=== PATIENT | female | born 1960 | race Caucasian/White ===

== ENCOUNTER 2017-01-11 15:50 | Emergency (ER) | payer BC ==
[~2017-01-11] VITALS: Ht 154.9 cm; Wt 90.7 kg
--- NOTE | 2017-01-11 16:17 | PHYS DOC ---
Past Medical History Past Medical History: No Pertinent History Past Surgical History: Alcohol Use: None Drug Use: None Adult General Chief Complaint Chief Complaint: KNEE INJURY HPI HPI Patient is a 56 year old female who presents with mild left anterior knee pain that began 2 days ago. Patient denies any known injury. She states the pain is throbbing worse on weight-bearing and flexion. Review of Systems Review of Systems Constitutional: Denies fever or chills [] Musculoskeletal: mild left anterior knee pain Integument: Denies rash or skin lesions [] Neurologic: Denies headache, focal weakness or sensory changes [] Allergies Allergies Allergies Coded Allergies Type Severity Reaction Last Updated Verified No Known Drug Allergies 09/20/14 No Physical Exam Physical Exam Constitutional: Well developed, well nourished, no acute distress, non-toxic appearance. [] Skin: Warm, dry, no erythema, no rash. [] Back: No tenderness, no CVA tenderness. [] Extremities: Left knee with no obvious edema and obvious ecchymosis, no bruising. Tenderness diffusely in the anterior aspect of the left knee. Full range of motion to the left knee, negative Ewelina sign and negative Jerrell's sign negative anterior-posterior drawer sign to the left knee. +2 left pedal pulse. Cap refill less than 2 seconds the left lower extremity. Neurologic: Alert and oriented X 3, normal motor function, normal sensory function, no focal deficits noted. [] Psychologic: Affect normal, judgement normal, mood normal. [] Current Patient Data Vital Signs Vital Signs Date Time Temp Pulse Resp B/P (MAP) Pulse Ox O2 Delivery O2 Flow Rate FiO2 01/11/17 16:30 98.1 69 20 97 Room Air 98.1 EKG EKG [] Radiology/Procedures Radiology/Procedures [] Course & Med Decision Making Course & Med Decision Making Pertinent Labs and Imaging studies reviewed. (See chart for details) Patient is in the ED with left knee pain normal injury. Left knee x-rays interpreted by Dr. Porras were noted for arthritis otherwise no acute findings. Patient was discharged with instructions to follow up with an orthopedic doctor we provided in the next 1-2 weeks. Discharged with diclofenac and Medrol dose pack. Ice elevation encouraged. Dragon Disclaimer Dragon Disclaimer This electronic medical record was generated, in whole or in part, using a voice recognition dictation system. Departure Departure Impression: Primary Impression: Left knee DJD Disposition: HOME, SELF-CARE Condition: STABLE Referrals: NO PCP (PCP) REAL MOONEY II, MD follow up in one week Patient Instructions: Arthritis, Degenerative-Brief Additional Instructions: You were seen for left knee pain. Your x-rays of the left knee were noted for arthritis otherwise no acute findings. Follow-up with the provided orthopedic doctor in one week. Take the prescribed medicines as ordered. Scripts Diclofenac Sodium (DICLOFENAC SODIUM) 50 Mg Tablet.dr 1 TAB PO BID, #20 TAB 0 Refills Prov: JOSEFA GUILLERMO APRN 01/11/17 Methylprednisolone (MEDROL) 4 Mg Tab.ds.pk 1 PKG PO UD, #1 PKG Prov: JOSEFA GUILLERMO ICE CREAM DISPENSER 01/11/17 Problem Qualifiers Primary Impression: Left knee DJD Osteoarthritis type: unspecified Qualified Codes: M17.12 - Unilateral primary osteoarthritis, left knee JOSEFA GUILLERMO ICE CREAM DISPENSER Jan 11, 2017 16:17
[2017-01-11 16:30] VITALS: BP 171/81
[2017-01-11] MEDS ORDERED: DICL50TA4 PO (17:20)
[2017-01-11] MEDS ORDERED: METH4TAB2 PO (17:20)
--- NOTE | 2017-01-12 08:13 | RAD ---
Left knee with patella, 4 views, 01/11/2017: History: Knee pain, overuse There is mild spurring at the knee joint and at the patellofemoral articulation. No fracture or dislocation is identified. Slight soft tissue fullness in the suprapatellar bursa region raises the possibility of a joint effusion. Arterial calcifications are noted. IMPRESSION: 1. Mild marginal spurring. 2. No acute bony abnormality is detected.
== END 2017-01-11 17:44 | disposition home or self-care (01) ==
LOC: ER 15:50
DX: M17.12 Unilateral primary osteoarthritis, left knee (principal)
CPT/HCPCS: 73564; 99284

== ENCOUNTER 2019-06-23 00:18 | Observation (INO) | payer BC ==
[~2019-06-23] VITALS: Ht 154.9 cm; Wt 100.7 kg
[~2019-06-23 00:18] MED LIST: DICL50TA4 PO; METH4TAB2 PO
[2019-06-23 00:52] LABS: BASO # 0.1 x10^3/uL (0.0-0.2); BASO % 0 % (0-3); EOS % 0 % (0-3); HEMATOCRIT 41.7 % (36.0-47.0); HEMOGLOBIN 13.8 g/dL (12.0-15.5); LYMPH # 1.1 x10^3/uL (1.0-4.8); LYMPH % 5 % (24-48); MEAN CORPUSCULAR HEMOGLOBIN 28 pg (25-35); MEAN CORPUSCULAR HGB CONC 33 g/dL (31-37); MEAN CORPUSCULAR VOLUME 86 fL (79-100); MONO # 0.6 x10^3/uL (0.0-1.1); MONO % 3 % (0-9); NEUT # 19.1 x10^3/uL (1.8-7.7); NEUT % 91 % (31-73); PLATELET COUNT 310 x10^3/uL (140-400); RED BLOOD COUNT 4.88 x10^6/uL (3.50-5.40); RED CELL DISTRIBUTION WIDTH 14.3 % (11.5-14.5); WHITE BLOOD COUNT 20.9 x10^3/uL (4.0-11.0)
[2019-06-23] MEDS ORDERED: ASPIRIN CHEWABLE 81 MG TABLET. PO ONE (01:00)
[2019-06-23 01:01] LABS: CALCIUM 9.1 mg/dL (8.5-10.1); CREATININE 0.7 mg/dL (0.6-1.0); GFR 85.6; POTASSIUM 4.6 mmol/L (3.5-5.1)
[2019-06-23] MEDS: NITROGLYCERIN SUBLINGUAL 0.4 MG BOTTLE OF 25. SL PRN ×2 (01:05→01:08)
[2019-06-23 01:09] LABS: ALBUMIN 3.7 g/dL (3.4-5.0); ALBUMIN/GLOBULIN RATIO 1.1 (1.0-1.7); MAGNESIUM 1.7 mg/dL (1.8-2.4); TOTAL BILIRUBIN 0.4 mg/dL (0.2-1.0); TOTAL PROTEIN 7.1 g/dL (6.4-8.2)
[2019-06-23 01:11] LABS: % BANDS 3 % (0-9); % LYMPHS 8 % (24-48); % MONOS 5 % (0-10); % SEGS 84 % (35-66); PLT ESTIMATE ADEQUATE (ADEQUATE); TOXIC GRANULATION SLIGHT
--- NOTE | 2019-06-23 01:12 | PHYS DOC ---
Past Medical History Past Medical History: No Pertinent History, Arthritis Past Surgical History: Other Additional Past Surgical Histo: C section x 4 Additional Information: 1.5 PACK/DAY Alcohol Use: Rarely Drug Use: None Adult General Chief Complaint Chief Complaint: CHEST PAIN HPI HPI 58-year-old female presents to the emergency department with complaints of left- sided chest pain, cough. Patient states she's had increasing cough and cold for the last week. She describes phlegm production green in nature. She denies any hemoptysis. She has had some chills, denies any fever. She denies any underlying history of lung disease however does smoke cigarettes. Nothing makes her symptoms worse or better. Patient denies nausea, vomiting, abdominal pain. Review of Systems Review of Systems Constitutional: Denies fever or chills [] HENT: nasal congestion Respiratory: + cough/SOB Cardiovascular: No additional information not addressed in HPI [] GI: Denies abdominal pain, nausea, vomiting, bloody stools or diarrhea [] Musculoskeletal: left side pain Integument: Denies rash or skin lesions [] Neurologic: Denies headache, focal weakness or sensory changes [] All other systems were reviewed and found to be within normal limits, except as documented in this note. Current Medications Current Medications Current Medications Medications (Trade) Dose Ordered Sig/Claudia Start Time Stop Time Status Last Admin Dose Admin Acetaminophen (Tylenol) 650 mg PRN Q4HRS PRN 06/23/19 02:30 06/24/19 02:29 Albuterol/ Ipratropium (Duoneb) 3 ml RTQID 06/23/19 08:00 06/24/19 07:59 Aspirin (Children'S Aspirin) 324 mg 1X ONCE 06/23/19 01:00 06/23/19 01:01 DC 06/23/19 01:05 324 MG Ketorolac Tromethamine (Toradol 30mg Vial) 30 mg 1X ONCE 06/23/19 03:00 06/23/19 03:01 06/23/19 02:35 30 MG Levofloxacin/ Dextrose 150 ml @ 100 mls/hr 1X ONCE 06/23/19 02:00 06/23/19 03:29 06/23/19 02:35 100 MLS/HR Magnesium Sulfate 50 ml @ 25 mls/hr 1X ONCE 06/23/19 02:00 1/30/20 03:59 Nitroglycerin (Nitrostat) 0.4 mg PRN Q5MIN PRN 06/23/19 00:45 06/24/19 00:44 Ondansetron HCl (Zofran) 4 mg PRN Q8HRS PRN 06/23/19 02:30 06/24/19 02:29 Prednisone (Prednisone) 60 mg 1X ONCE 06/23/19 01:30 06/23/19 01:31 DC 06/23/19 01:39 60 MG Allergies Allergies Allergies Coded Allergies Type Severity Reaction Last Updated Verified No Known Drug Allergies 09/20/14 No Physical Exam Physical Exam Constitutional: Well developed, well nourished, no acute distress, non-toxic appearance. [] HENT: Normocephalic, atraumatic, bilateral external ears normal, oropharynx moist, no oral exudates, nose normal. [] Eyes: PERRLA, EOMI, conjunctiva normal, no discharge. [] Cardiovascular:Heart rate regular rhythm, no murmur [] Lungs & Thorax: decreased BS, wheeze, coarse BS left > right Abdomen: Bowel sounds normal, soft, no tenderness, no masses, no pulsatile masses. [] Skin: Warm, dry, no erythema, no rash. [] Back: No tenderness, no CVA tenderness. [] Extremities: No tenderness, no edema. [] Neurologic: Alert and oriented X 3, no focal deficits noted. [] Psychologic: Affect normal, judgement normal, mood normal. [] Current Patient Data Vital Signs Vital Signs Date Time Temp Pulse Resp B/P (MAP) Pulse Ox O2 Delivery O2 Flow Rate FiO2 06/23/19 01:18 97 Room Air 06/23/19 00:37 96 24 134/78 (96) 06/23/19 00:20 99.4 99.4 Lab Values Laboratory Tests Test 06/23/19 00:30 White Blood Count 20.9 x10^3/uL (4.0-11.0) H Red Blood Count 4.88 x10^6/uL (3.50-5.40) Hemoglobin 13.8 g/dL (12.0-15.5) Hematocrit 41.7 % (36.0-47.0) Mean Corpuscular Volume 86 fL (79-100) Mean Corpuscular Hemoglobin 28 pg (25-35) Mean Corpuscular Hemoglobin Concent 33 g/dL (31-37) Red Cell Distribution Width 14.3 % (11.5-14.5) Platelet Count 310 x10^3/uL (140-400) Neutrophils (%) (Auto) 91 % (31-73) H Lymphocytes (%) (Auto) 5 % (24-48) L Monocytes (%) (Auto) 3 % (0-9) Eosinophils (%) (Auto) 0 % (0-3) Basophils (%) (Auto) 0 % (0-3) Neutrophils # (Auto) 19.1 x10^3/uL (1.8-7.7) H Lymphocytes # (Auto) 1.1 x10^3/uL (1.0-4.8) Monocytes # (Auto) 0.6 x10^3/uL (0.0-1.1) Eosinophils # (Auto) 0.0 x10^3/uL (0.0-0.7) Basophils # (Auto) 0.1 x10^3/uL (0.0-0.2) Segmented Neutrophils % 84 % (35-66) H Band Neutrophils % 3 % (0-9) Lymphocytes % 8 % (24-48) L Monocytes % 5 % (0-10) Toxic Granulation Slight Platelet Estimate Adequate (ADEQUATE) D-Dimer (Cristine) 0.47 ug/mlFEU (0.00-0.50) Sodium Level 141 mmol/L (136-145) Potassium Level 4.6 mmol/L (3.5-5.1) Chloride Level 102 mmol/L (98-107) Carbon Dioxide Level 29 mmol/L (21-32) Anion Gap 10 (6-14) Blood Urea Nitrogen 9 mg/dL (7-20) Creatinine 0.7 mg/dL (0.6-1.0) Estimated GFR (Cockcroft-Gault) 85.6 BUN/Creatinine Ratio 13 (6-20) Glucose Level 154 mg/dL (70-99) H Lactic Acid Level 1.4 mmol/L (0.4-2.0) Calcium Level 9.1 mg/dL (8.5-10.1) Magnesium Level 1.7 mg/dL (1.8-2.4) L Total Bilirubin 0.4 mg/dL (0.2-1.0) Aspartate Amino Transferase (AST) 19 U/L (15-37) Alanine Aminotransferase (ALT) 18 U/L (14-59) Alkaline Phosphatase 139 U/L (46-116) H Troponin I Quantitative < 0.017 ng/mL (0.000-0.055) LP-Kjm-[id number]-Type Natriuretic Peptide 83 pg/mL (0-124) Total Protein 7.1 g/dL (6.4-8.2) Albumin 3.7 g/dL (3.4-5.0) Albumin/Globulin Ratio 1.1 (1.0-1.7) Laboratory Tests 06/23/19 00:30 Laboratory Tests 06/23/19 00:30 EKG EKG [] Radiology/Procedures Radiology/Procedures [] Course & Med Decision Making Course & Med Decision Making Pertinent Labs and Imaging studies reviewed. (See chart for details) []58-year-old female presents to the emergency department with complaints of left-sided chest pain, cough. Patient states she's had increasing cough and cold for the last week. She describes phlegm production green in nature. She denies any hemoptysis. She has had some chills, denies any fever. She denies any underlying history of lung disease however does smoke cigarettes. Nothing makes her symptoms worse or better. Patient denies nausea, vomiting, abdominal pain. Labs reviewed Evidence of leukocytosis 20.9, CXR with atypical pna, hypomag Ddimer negative, Trop negative Patient provided with duoneb, toradol Recommend admit, abx, cultures Discussed findings with patient, will admit for further observation Magnesium replaced Dragon Disclaimer Dragon Disclaimer This electronic medical record was generated, in whole or in part, using a voice recognition dictation system. Departure Departure Impression: Primary Impression: Atypical pneumonia Additional Impression: Hypomagnesemia Disposition: ADMITTED INPATIENT Admitting Physician: HIMS Condition: STABLE Referrals: NO PCP (PCP) Problem Qualifiers CHELSEY ARMIJO MD Jun 23, 2019 01:12
--- NOTE | 2019-06-23 01:29 | RAD ---
EXAM: AP View of the chest DATE: 06/23/2019 12:43 AM INDICATION: Chest pain COMPARISON: No Prior FINDINGS: The heart is not enlarged. Aortic calcifications are seen. Mediastinal and hilar contours are normal. Mild bilateral interstitial prominence. No pleural effusion or pneumothorax. IMPRESSION: 1. Bilateral interstitial prominence nonspecific, possibly atypical infectious or inflammatory process. 2. No lobar consolidation. Electronically signed by: Kai Cordova MD (06/23/2019 1:27 AM) [facility]
[2019-06-23] MEDS ORDERED: IPRATRPIUM/ALBUTEROL 0.5/2.5MG 3 ML NEBU. NEB ONE (01:30)
[2019-06-23] MEDS ORDERED: predniSONE 20 MG TABLET PO ONE (01:30)
[2019-06-23] MEDS ORDERED: MAGNESIUM SULFATE 2GM 50 ML IV ONE (02:00)
[2019-06-23] MEDS ORDERED: ONDANSETRON PF 4 MG/2 ML VIAL. IV PRN (02:30)
[2019-06-23] MEDS ORDERED: ACETAMINOPHEN 325 MG TABLET. PO PRN (02:30)
[2019-06-23] MEDS ORDERED: KETOROLAC 30 MG/ML VIAL. IVP ONE (03:00)
[2019-06-23 04:26] LABS: CLARITY,URINE CLEAR; COLOR,URINE YELLOW
[2019-06-23 04:27] LABS: BILIRUBIN,URINE NEGATIVE (NEG); NITRITE,URINE NEGATIVE (NEG); PH,URINE 8.5; PROTEIN,URINE 30 mg/dL (NEG-TRACE); SQUAMOUS EPITHELIAL CELL,UR MOD /LPF
[2019-06-23 04:28] LABS: BACTERIA,URINE FEW /HPF (0-FEW); RBC,URINE OCC /HPF (0-2); WBC,URINE OCC /HPF (0-4)
--- NOTE | 2019-06-23 06:53 | EKG ---
[facility] [address] [place] [address] Test Date: 2019-06-23 Test Time: 00:31:20 Pat Name: MAYO MICHAEL Department: Room: Gender: F Cardiology Physician: : [id number] Requested By: CHELSEY ARMIJO Order Number: [id number] Reading MD: Measurements Intervals [place] Rate: 96 P: 42 KS: 138 QRS: -5 QRSD: 80 T: 43 QT: 328 QTc: 415 Interpretive Statements SINUS RHYTHM LEFTWARD AXIS OTHERWISE NORMAL ECG RI6.01 No previous ECG available for comparison
[2019-06-23 07:15] VITALS: BP 134/59
[2019-06-23] MEDS ORDERED: IPRATRPIUM/ALBUTEROL 0.5/2.5MG 3 ML NEBU. NEB SCH (08:00)
[2019-06-23] MEDS ORDERED: ACETAMINOPHEN 500 MG TABLET PO PRN (09:00)
[2019-06-23] MEDS ORDERED: ONDANSETRON PF 4 MG/2 ML VIAL. IVP PRN (09:00)
[2019-06-23] MEDS ORDERED: ACETAMINOPHEN/CODEINE 300/30MG TABLET. PO PRN (09:00)
[2019-06-23] MEDS ORDERED: cloNIDine HCL 0.1 MG TABLET PO PRN (09:00)
[2019-06-23] MEDS ORDERED: CALCIUM CARBONATE 500 MG TAB.CHEW PO PRN (09:00)
[2019-06-23] MEDS ORDERED: NICOTINE 21MG PATCH. TD PRN (09:00)
[2019-06-23] MEDS ORDERED: TEMAZEPAM 7.5 MG CAPSULE PO PRN (09:00)
[2019-06-23] MEDS: DICLOFENAC SODIUM 25 MG TABLET.DR PO SCH ×2 (09:15→16:30)
[2019-06-23] MEDS: DOXYCYCLINE HYCLATE 100 MG TABLET PO SCH ×2 (09:39→20:16)
[2019-06-23] MEDS ORDERED: MAGNESIUM SULFATE 1GM 100 ML IV ONE (10:00)
--- NOTE | 2019-06-23 10:33 | PDOC2 ---
ESTHELA MOREIRA HEAD SILVERMAN 06/23/19 1033: CARDIAC CONSULT DATE OF CONSULT Date of Consult DATE: 06/23/19 TIME: 10:30 REASON FOR CONSULT Reason for Consult: chest pain REFERRING PHYSICIAN Referring Physician: Cynthia SOURCE Source: Chart review, Patient HISTORY OF PRESENT ILLNESS HISTORY OF PRESENT ILLNESS This is a 58 yo female who presented secondary to chest pain and persistent cough. Patient reports cold, congestion, cough for the last week. Cough productive of green/yellow sputum. Last night, began having sharp pain in her left side/chest and also in her back. Much worse with deep breathing and cough. Hurts to take a deep breath. No dizziness, diaphoresis, palpitations, or nausea/vomiting. No known medical history aside from arthritis, but hester not routinely go to the doctor. Pain is improved with Toradol. PAST MEDICAL HISTORY Cardiovascular: No pertinent hx Musculoskeletal: Osteoarthritis PAST SURGICAL HISTORY Past Surgical History: Other ( x4) FAMILY HISTORY Family History: Cancer (lung ), Heart Disease (mother ) SOCIAL HISTORY Smoke: 1 pack per day (1.5 ppd) ALCOHOL: none Drugs: None Lives: with Family CURRENT MEDICATIONS CURRENT MEDICATIONS Current Medications Medications (Trade) Dose Ordered Sig/Claudia Route PRN Reason Start Time Stop Time Status Last Admin Dose Admin Aspirin (Children'S Aspirin) 324 mg 1X ONCE PO 06/23/19 01:00 06/23/19 01:01 DC 06/23/19 01:05 Albuterol/ Ipratropium (Duoneb) 3 ml 1X ONCE NEB 06/23/19 01:30 06/23/19 01:31 DC 06/23/19 01:17 Prednisone (Prednisone) 60 mg 1X ONCE PO 06/23/19 01:30 06/23/19 01:31 DC 06/23/19 01:39 Levofloxacin/ Dextrose 150 ml @ 100 mls/hr 1X ONCE IV 06/23/19 02:00 06/23/19 03:29 DC 06/23/19 02:35 Magnesium Sulfate 50 ml @ 25 mls/hr 1X ONCE IV 06/23/19 02:00 06/23/19 03:59 DC 06/23/19 02:58 Ketorolac Tromethamine (Toradol 30mg Vial) 30 mg 1X ONCE IVP 06/23/19 03:00 06/23/19 03:01 DC 06/23/19 02:35 Albuterol/ Ipratropium (Duoneb) 3 ml RTQID NEB 06/23/19 08:00 06/23/19 09:00 DC 06/23/19 07:59 Doxycycline Hyclate (Vibra-Tab) 100 mg BID PO 06/23/19 09:00 06/23/19 09:39 Diclofenac Sodium (Voltaren) 50 mg BIDWMEALS PO 06/23/19 09:15 06/23/19 09:15 Magnesium Sulfate/ Dextrose 100 ml @ 100 mls/hr 1X ONCE IV 06/23/19 10:00 06/23/19 10:59 06/23/19 09:38 ALLERGIES ALLERGIES: Coded Allergies: No Known Drug Allergies (Unverified , 09/20/14) ROS Review of System 14 point ROS conducted with pertinent positives noted above in hPI PHYSICAL EXAM General: Alert, Oriented X3, Cooperative, No acute distress HEENT: Atraumatic, Other (coarse bases) Lungs: Normal air movement, Other (left chest tenderness upon palpitation) Heart: Regular rate, Normal S1, Normal S2, Other (distant heart tones ) Abdomen: Soft, Other (obese ) Skin: No significant lesion Neuro: Normal speech, Sensation intact Psych/Mental Status: Mental status NL, Mood NL MUSCULOSKELETAL: Osteoarthritic changes both hands VITALS/I&O VITALS/I&O: Vital Signs Date Time Temp Pulse Resp B/P (MAP) Pulse Ox O2 Delivery O2 Flow Rate FiO2 06/23/19 08:01 93 Nasal Cannula 2.0 06/23/19 07:15 98.0 94 20 134/59 (84) 98.0 I & O 06/22/19 06/22/19 06/23/19 15:00 23:00 07:00 Intake Total 200 ml Balance 200 ml LABS Lab: Laboratory Tests Test 06/23/19 00:30 06/23/19 04:10 06/23/19 05:53 06/23/19 09:05 White Blood Count 20.9 x10^3/uL (4.0-11.0) H Red Blood Count 4.88 x10^6/uL (3.50-5.40) Hemoglobin 13.8 g/dL (12.0-15.5) Hematocrit 41.7 % (36.0-47.0) Mean Corpuscular Volume 86 fL (79-100) Mean Corpuscular Hemoglobin 28 pg (25-35) Mean Corpuscular Hemoglobin Concent 33 g/dL (31-37) Red Cell Distribution Width 14.3 % (11.5-14.5) Platelet Count 310 x10^3/uL (140-400) Neutrophils (%) (Auto) 91 % (31-73) H Lymphocytes (%) (Auto) 5 % (24-48) L Monocytes (%) (Auto) 3 % (0-9) Eosinophils (%) (Auto) 0 % (0-3) Basophils (%) (Auto) 0 % (0-3) Neutrophils # (Auto) 19.1 x10^3/uL (1.8-7.7) H Lymphocytes # (Auto) 1.1 x10^3/uL (1.0-4.8) Monocytes # (Auto) 0.6 x10^3/uL (0.0-1.1) Eosinophils # (Auto) 0.0 x10^3/uL (0.0-0.7) Basophils # (Auto) 0.1 x10^3/uL (0.0-0.2) Segmented Neutrophils % 84 % (35-66) H Band Neutrophils % 3 % (0-9) Lymphocytes % 8 % (24-48) L Monocytes % 5 % (0-10) Toxic Granulation Slight Platelet Estimate Adequate (ADEQUATE) D-Dimer (Cristine) 0.47 ug/mlFEU (0.00-0.50) Sodium Level 141 mmol/L (136-145) Potassium Level 4.6 mmol/L (3.5-5.1) Chloride Level 102 mmol/L (98-107) Carbon Dioxide Level 29 mmol/L (21-32) Anion Gap 10 (6-14) Blood Urea Nitrogen 9 mg/dL (7-20) Creatinine 0.7 mg/dL (0.6-1.0) Estimated GFR (Cockcroft-Gault) 85.6 BUN/Creatinine Ratio 13 (6-20) Glucose Level 154 mg/dL (70-99) H Lactic Acid Level 1.4 mmol/L (0.4-2.0) Calcium Level 9.1 mg/dL (8.5-10.1) Magnesium Level 1.7 mg/dL (1.8-2.4) L Total Bilirubin 0.4 mg/dL (0.2-1.0) Aspartate Amino Transferase (AST) 19 U/L (15-37) Alanine Aminotransferase (ALT) 18 U/L (14-59) Alkaline Phosphatase 139 U/L (46-116) H Troponin I Quantitative < 0.017 ng/mL (0.000-0.055) < 0.017 ng/mL (0.000-0.055) < 0.017 ng/mL (0.000-0.055) OV-Uwy-Q-Type Natriuretic Peptide 83 pg/mL (0-124) Total Protein 7.1 g/dL (6.4-8.2) Albumin 3.7 g/dL (3.4-5.0) Albumin/Globulin Ratio 1.1 (1.0-1.7) Urine Collection Type Unknown Urine Color Yellow Urine Clarity Clear Urine pH 8.5 Urine Specific Louann 1.020 Urine Protein 30 mg/dL (NEG-TRACE) Urine Glucose (UA) Negative mg/dL (NEG) Urine Ketones (Stick) Negative mg/dL (NEG) Urine Blood Negative (NEG) Urine Nitrite Negative (NEG) Urine Bilirubin Negative (NEG) Urine Urobilinogen Dipstick 1.0 mg/dL (0.2 mg/dL) Urine Leukocyte Esterase Negative (NEG) Urine RBC Occ /HPF (0-2) Urine WBC Occ /HPF (0-4) Urine Squamous Epithelial Cells Mod /LPF Urine Bacteria Few /HPF (0-FEW) Urine Mucus Slight /LPF Laboratory Tests 06/23/19 00:30 Laboratory Tests 06/23/19 00:30 ASSESSMENT/PLAN ASSESSMENT/PLAN 1. Chest pain, atypical. AMI ruled out. Most probably inflammation secondary to persistent cough 2. Leukocytosis 3. Acute bronchitis 4. Hypomagnesemia; replaced 5. Tobaccoism; discussed/encouraged cessation Recommendations Lipids Given risk factors, will obtain baseline echo to asses LV systolic function If pain recurrent following resolution of cough, could consider outpatient MPI. JAKE TOLBERT MD 06/23/19 7254: CARDIAC CONSULT ASSESSMENT/PLAN ASSESSMENT/PLAN Patient seen and examined. Agree with DIGITAL SALES DIRECTOR's assessment and plan. Chest pain with atypical features and probably musculoskeletal. Myocardial infarction ruled out. 2-D echo showed normal LV function without any wall motion abnormalities Plan for ischemic evaluation as an outpatient Thank you for your consultation ESTHELA MOREIRA APRN Jun 23, 2019 10:33 JAKE TOLBERT MD Jun 23, 2019 16:21
[2019-06-23 10:58] VITALS: BP 122/63
[2019-06-23 11:09] LABS: CHOLESTEROL/HDL RATIO 5.4
[2019-06-23] MEDS: IPRATRPIUM/ALBUTEROL 0.5/2.5MG 3 ML NEBU. NEB SCH ×3 (11:27→19:32)
--- NOTE | 2019-06-23 12:03 | PDOC1 ---
History and Physical Date of Admission Date of Admission DATE: 06/23/19 TIME: 11:54 Identification/Chief Complaint Chief Complaint soa, wheezy, x 1 week Source Source: Caregiver, Chart review, Patient History of Present Illness History of Present Illness 58 yo white female, no home meds at home no PCP, 1 week SOA and wheezy, SMOKES 1,.5 packs lasts her 2 days, LIKELY undiagnosed COPD, CXR bilateral haziness seen in atypical infection, DID NOT fail abx, DID NOT seek any medical attention PROPERTY MAN, WBC 20 (no prev steroids), no fevers. Sitting up right with minimal air exchange, diminshed on bases, SHe also complained of left chest pain radiated to back, then she mentions starting from the neck moved to the left arm so cards was consulted, NO personal hx CAD, but then has not been to doctors and has risk factors Seen in med tele floor. EKG reviewed. MAg slightly low 1.7 Past Medical History Cardiovascular: No pertinent hx Musculoskeletal: Osteoarthritis Past Surgical History Past Surgical History: Other ( x4), No pertinent history Family History Family History: Cancer (lung ), Heart Disease (mother ) Social History Smoke: 1 pack per day (1.5 ppd) ALCOHOL: none Drugs: None Current Problem List Problem List Problems Medical Problems: (1) Hypomagnesemia Status: Acute Current Medications Current Medications Current Medications Aspirin (Children'S Aspirin) 324 mg 1X ONCE PO Last administered on 06/23/19at 01:05; Start 06/23/19 at 01:00; Stop 06/23/19 at 01:01; Status DC Nitroglycerin (Nitrostat) 0.4 mg PRN Q5MIN PRN SL CP RATING > 1/10; Start 06/23/19 at 00:45; Stop 06/24/19 at 00:44 Albuterol/ Ipratropium (Duoneb) 3 ml 1X ONCE NEB Last administered on 06/23/19 at 01:17; Start 06/23/19 at 01:30; Stop 06/23/19 at 01:31; Status DC Prednisone (Prednisone) 60 mg 1X ONCE PO Last administered on 06/23/19at 01:39; Start 06/23/19 at 01:30; Stop 06/23/19 at 01:31; Status DC Levofloxacin/ Dextrose 150 ml @ 100 mls/hr 1X ONCE IV Last administered on 06/23/19at 02:35; Start 06/23/19 at 02:00; Stop 06/23/19 at 03:29; Status DC Magnesium Sulfate 50 ml @ 25 mls/hr 1X ONCE IV Last administered on 06/23/19at 02:58; Start 06/23/19 at 02:00; Stop 06/23/19 at 03:59; Status DC Ketorolac Tromethamine (Toradol 30mg Vial) 30 mg 1X ONCE IVP Last administered on 06/23/19at 02:35; Start 06/23/19 at 03:00; Stop 06/23/19 at 03:01; Status DC Ondansetron HCl (Zofran) 4 mg PRN Q8HRS PRN IV NAUSEA/VOMITING 1ST CHOICE; Start 06/23/19 at 02:30; Stop 06/23/19 at 09:01; Status DC Acetaminophen (Tylenol) 650 mg PRN Q4HRS PRN PO FEVER; Start 06/23/19 at 02:30; Stop 06/23/19 at 09:00; Status DC Albuterol/ Ipratropium (Duoneb) 3 ml RTQID NEB Last administered on 06/23/19at 07:59; Start 06/23/19 at 08:00; Stop 06/23/19 at 09:00; Status DC Methylprednisolone Sodium Succinate (SOLU-Medrol 40MG VIAL) 40 mg Q8HRS IV ; St art 06/23/19 at 14:00 Albuterol/ Ipratropium (Duoneb) 3 ml RTQID NEB Last administered on 06/23/19at 11:27; Start 06/23/19 at 12:00 Acetaminophen (Tylenol) 500 mg PRN Q6HRS PRN PO MILD PAIN / TEMP; Start 06/23/19 at 09:00 Acetaminophen/ Codeine Phosphate (Tylenol #3) 1 tab PRN Q6HRS PRN PO PAIN; Start 06/23/19 at 09:00 Ondansetron HCl (Zofran) 4 mg PRN Q6HRS PRN IVP NAUSEA/VOMITING; Start 06/23/19 at 09:00 Temazepam (Restoril) 7.5 mg PRN QHS PRN PO INSOMNIA; Start 06/23/19 at 09:00 Clonidine HCl (Catapres) 0.1 mg PRN Q1HR PRN PO HYPERTENSION; Start 06/23/19 at 09:00 Calcium Carbonate/ Glycine (Tums) 500 mg PRN AFTMEALHC PRN PO INDIGESTION; Start 06/23/19 at 09:00 Doxycycline Hyclate (Vibra-Tab) 100 mg BID PO Last administered on 06/23/19at 09:39; Start 06/23/19 at 09:00 Diclofenac Sodium (Voltaren) 50 mg BIDWMEALS PO Last administered on 06/23/19at 09:15; Start 06/23/19 at 09:15 Magnesium Sulfate/ Dextrose 100 ml @ 100 mls/hr 1X ONCE IV Last administered on 06/23/19at 09:38; Start 06/23/19 at 10:00; Stop 06/23/19 at 10:59; Status DC Nicotine (Nicoderm Cq 21mg) 1 patch PRN DAILY PRN TD SMOKING CESSATION; Start 06/23/19 at 09:00 Aspirin (Ecotrin) 81 mg DAILYWBKFT PO ; Start 06/24/19 at 08:00 Active Scripts Active Diclofenac Sodium 50 Mg Tablet.dr 1 Tab PO BID Medrol (Methylprednisolone) 4 Mg Tab.ds.pk 1 Pkg PO UD Allergies Allergies: Coded Allergies: No Known Drug Allergies (Unverified , 09/20/14) ROS Review of System as per HPI< all else 14 pt neg Physical Exam General: mild distress HEENT: Atraumatic, PERRLA Lungs: Normal air movement, Other (dminished air exchange, no crackles, minimal audible wheezing bec of poor effort) Heart: S1S2, RRR, no thrills, no rubs Cardiovascular: S1, S2 Breasts: Normal Abdomen: Normal bowel sounds, Soft, No tenderness, No hepatosplenomegaly, No masses Rectal Exam: not examined PELVIC: Nml ext genitalia Extremities: No clubbing, No cyanosis, No edema, Normal pulses, No tenderness/swelling Skin: No rashes, No breakdown, No significant lesion Neuro: Normal gait, Normal speech, Strength at 5/5 X4 ext, Normal tone, Sensation intact, Cranial nerves 3-12 NL, Reflexes 2+ Psych/Mental Status: Mental status NL, Mood NL Vitals Vitals Vital Signs Date Time Temp Pulse Resp B/P (MAP) Pulse Ox O2 Delivery O2 Flow Rate FiO2 06/23/19 11:28 96 Nasal Cannula 2.0 06/23/19 10:58 98.0 95 20 122/63 (82) 98.0 Labs Labs Laboratory Tests Test 06/23/19 00:30 06/23/19 04:10 06/23/19 05:53 06/23/19 09:05 White Blood Count 20.9 x10^3/uL (4.0-11.0) Red Blood Count 4.88 x10^6/uL (3.50-5.40) Hemoglobin 13.8 g/dL (12.0-15.5) Hematocrit 41.7 % (36.0-47.0) Mean Corpuscular Volume 86 fL (79-100) Mean Corpuscular Hemoglobin 28 pg (25-35) Mean Corpuscular Hemoglobin Concent 33 g/dL (31-37) Red Cell Distribution Width 14.3 % (11.5-14.5) Platelet Count 310 x10^3/uL (140-400) Neutrophils (%) (Auto) 91 % (31-73) Lymphocytes (%) (Auto) 5 % (24-48) Monocytes (%) (Auto) 3 % (0-9) Eosinophils (%) (Auto) 0 % (0-3) Basophils (%) (Auto) 0 % (0-3) Neutrophils # (Auto) 19.1 x10^3/uL (1.8-7.7) Lymphocytes # (Auto) 1.1 x10^3/uL (1.0-4.8) Monocytes # (Auto) 0.6 x10^3/uL (0.0-1.1) Eosinophils # (Auto) 0.0 x10^3/uL (0.0-0.7) Basophils # (Auto) 0.1 x10^3/uL (0.0-0.2) Segmented Neutrophils % 84 % (35-66) Band Neutrophils % 3 % (0-9) Lymphocytes % 8 % (24-48) Monocytes % 5 % (0-10) Toxic Granulation Slight Platelet Estimate Adequate (ADEQUATE) D-Dimer (Cristine) 0.47 ug/mlFEU (0.00-0.50) Sodium Level 141 mmol/L (136-145) Potassium Level 4.6 mmol/L (3.5-5.1) Chloride Level 102 mmol/L (98-107) Carbon Dioxide Level 29 mmol/L (21-32) Anion Gap 10 (6-14) Blood Urea Nitrogen 9 mg/dL (7-20) Creatinine 0.7 mg/dL (0.6-1.0) Estimated GFR (Cockcroft-Gault) 85.6 BUN/Creatinine Ratio 13 (6-20) Glucose Level 154 mg/dL (70-99) Lactic Acid Level 1.4 mmol/L (0.4-2.0) Calcium Level 9.1 mg/dL (8.5-10.1) Magnesium Level 1.7 mg/dL (1.8-2.4) Total Bilirubin 0.4 mg/dL (0.2-1.0) Aspartate Amino Transf (AST/SGOT) 19 U/L (15-37) Alanine Aminotransferase (ALT/SGPT) 18 U/L (14-59) Alkaline Phosphatase 139 U/L (46-116) Troponin I Quantitative < 0.017 ng/mL (0.000-0.055) < 0.017 ng/mL (0.000-0.055) < 0.017 ng/mL (0.000-0.055) GB-Zro-O-Type Natriuretic Peptide 83 pg/mL (0-124) Total Protein 7.1 g/dL (6.4-8.2) Albumin 3.7 g/dL (3.4-5.0) Albumin/Globulin Ratio 1.1 (1.0-1.7) Urine Collection Type Unknown Urine Color Yellow Urine Clarity Clear Urine pH 8.5 Urine Specific [place] 1.020 Urine Protein 30 mg/dL (NEG-TRACE) Urine Glucose (UA) Negative mg/dL (NEG) Urine Ketones (Stick) Negative mg/dL (NEG) Urine Blood Negative (NEG) Urine Nitrite Negative (NEG) Urine Bilirubin Negative (NEG) Urine Urobilinogen Dipstick 1.0 mg/dL (0.2 mg/dL) Urine Leukocyte Esterase Negative (NEG) Urine RBC Occ /HPF (0-2) Urine WBC Occ /HPF (0-4) Urine Squamous Epithelial Cells Mod /LPF Urine Bacteria Few /HPF (0-FEW) Urine Mucus Slight /LPF Triglycerides Level 53 mg/dL (0-150) Cholesterol Level 227 mg/dL (0-200) LDL Cholesterol, Calculated 174 mg/dL (0-100) VLDL Cholesterol, Calculated 11 mg/dL (0-40) Non-HDL Cholesterol Calculated 185 mg/dL (0-129) HDL Cholesterol 42 mg/dL (40-60) Cholesterol/HDL Ratio 5.4 Laboratory Tests Test 06/23/19 00:30 06/23/19 04:10 06/23/19 05:53 06/23/19 09:05 White Blood Count 20.9 x10^3/uL (4.0-11.0) Red Blood Count 4.88 x10^6/uL (3.50-5.40) Hemoglobin 13.8 g/dL (12.0-15.5) Hematocrit 41.7 % (36.0-47.0) Mean Corpuscular Volume 86 fL (79-100) Mean Corpuscular Hemoglobin 28 pg (25-35) Mean Corpuscular Hemoglobin Concent 33 g/dL (31-37) Red Cell Distribution Width 14.3 % (11.5-14.5) Platelet Count 310 x10^3/uL (140-400) Neutrophils (%) (Auto) 91 % (31-73) Lymphocytes (%) (Auto) 5 % (24-48) Monocytes (%) (Auto) 3 % (0-9) Eosinophils (%) (Auto) 0 % (0-3) Basophils (%) (Auto) 0 % (0-3) Neutrophils # (Auto) 19.1 x10^3/uL (1.8-7.7) Lymphocytes # (Auto) 1.1 x10^3/uL (1.0-4.8) Monocytes # (Auto) 0.6 x10^3/uL (0.0-1.1) Eosinophils # (Auto) 0.0 x10^3/uL (0.0-0.7) Basophils # (Auto) 0.1 x10^3/uL (0.0-0.2) Segmented Neutrophils % 84 % (35-66) Band Neutrophils % 3 % (0-9) Lymphocytes % 8 % (24-48) Monocytes % 5 % (0-10) Toxic Granulation Slight Platelet Estimate Adequate (ADEQUATE) D-Dimer (Cristine) 0.47 ug/mlFEU (0.00-0.50) Sodium Level 141 mmol/L (136-145) Potassium Level 4.6 mmol/L (3.5-5.1) Chloride Level 102 mmol/L (98-107) Carbon Dioxide Level 29 mmol/L (21-32) Anion Gap 10 (6-14) Blood Urea Nitrogen 9 mg/dL (7-20) Creatinine 0.7 mg/dL (0.6-1.0) Estimated GFR (Cockcroft-Gault) 85.6 BUN/Creatinine Ratio 13 (6-20) Glucose Level 154 mg/dL (70-99) Lactic Acid Level 1.4 mmol/L (0.4-2.0) Calcium Level 9.1 mg/dL (8.5-10.1) Magnesium Level 1.7 mg/dL (1.8-2.4) Total Bilirubin 0.4 mg/dL (0.2-1.0) Aspartate Amino Transf (AST/SGOT) 19 U/L (15-37) Alanine Aminotransferase (ALT/SGPT) 18 U/L (14-59) Alkaline Phosphatase 139 U/L (46-116) Troponin I Quantitative < 0.017 ng/mL (0.000-0.055) < 0.017 ng/mL (0.000-0.055) < 0.017 ng/mL (0.000-0.055) QP-Vtb-Z-Type Natriuretic Peptide 83 pg/mL (0-124) Total Protein 7.1 g/dL (6.4-8.2) Albumin 3.7 g/dL (3.4-5.0) Albumin/Globulin Ratio 1.1 (1.0-1.7) Urine Collection Type Unknown Urine Color Yellow Urine Clarity Clear Urine pH 8.5 Urine Specific [place] 1.020 Urine Protein 30 mg/dL (NEG-TRACE) Urine Glucose (UA) Negative mg/dL (NEG) Urine Ketones (Stick) Negative mg/dL (NEG) Urine Blood Negative (NEG) Urine Nitrite Negative (NEG) Urine Bilirubin Negative (NEG) Urine Urobilinogen Dipstick 1.0 mg/dL (0.2 mg/dL) Urine Leukocyte Esterase Negative (NEG) Urine RBC Occ /HPF (0-2) Urine WBC Occ /HPF (0-4) Urine Squamous Epithelial Cells Mod /LPF Urine Bacteria Few /HPF (0-FEW) Urine Mucus Slight /LPF Triglycerides Level 53 mg/dL (0-150) Cholesterol Level 227 mg/dL (0-200) LDL Cholesterol, Calculated 174 mg/dL (0-100) VLDL Cholesterol, Calculated 11 mg/dL (0-40) Non-HDL Cholesterol Calculated 185 mg/dL (0-129) HDL Cholesterol 42 mg/dL (40-60) Cholesterol/HDL Ratio 5.4 VTE Prophylaxis Ordered VTE Prophylaxis Devices: Yes VTE Pharmacological Prophylaxi: Yes Assessment/Plan Assessment/Plan 1. Acute respi failure, SMoker, 1.5 lasts 2 days 2. Obesity 3. LIkely undiagnosed COPD 4. Chest pain Suspect MSK in origin 5. LEukocytosis , no steroids PROPERTY MAN, likely sec to atypical lung infection - start doxy, pulmo cnsulted,plus other supportive meds 6. MIld hypomagneseami - 1.7 - replace 7. SIRSno organ dysfcn PLAN: Doxy, pulmo, nebs deyanira patch Cards and pulmo consulted may eat Ambulate Echo per cards NEeds to quit smoking and lose weight NO home meds to reconcile DES CRYSTAL MD Jun 23, 2019 12:03
--- NOTE | 2019-06-23 14:10 | NUR ---
SS following for discharge planning. SS reviewed pt chart. Pt is from home and is currently requiring oxygen. SS will continue to follow for discharge planning.
[2019-06-23] MEDS: methylPREDNISolone SOD SUCC PF 40 MG/ML VIAL. IV SCH ×2 (14:43→20:16)
[2019-06-23 15:00] VITALS: BP 119/70
--- NOTE | 2019-06-23 15:20 | CARD ---
MR#: [id number] Date of Study: 06/23/2019 Ordering Physician: ESTHELA MOREIRA, Referring Physician: ESTHELA MOREIRA, Tech: Robina Caal [facility] APPROVED REPORT EXAM: Two-dimensional and M-mode echocardiogram with Doppler and color Doppler. Other Information Quality : AverageHR: 86bpm Technically limited study due to body habitus and smoking. INDICATION Dyspnea 2D DIMENSIONS RVDd3.9 (2.9-3.5cm)Left Atrium(2D)3.6 (1.6-4.0cm) IVSd1.0 (0.7-1.1cm)Aortic Root(2D)2.4 (2.0-3.7cm) LVDd4.6 (3.9-5.9cm)LVOT Diameter1.9 (1.8-2.4cm) PWd0.9 (0.7-1.1cm)LVDs3.2 (2.5-4.0cm) FS (%) 29.6 %SV53.9 ml LVEF(%)56.7 (>50%) Aortic Valve AoV Peak Roberto.225.7cm/sAoV VTI39.0cm AO Peak GR.20.4mmHgLVOT Peak Roberto.155.6cm/s AO Mean GR.9mmHgAVA (VMAX)2.02cm2 Mitral Valve MV E Ygdzlgon10.8cm/sMV DECEL [id number] MV A Nwcclltl254.5cm/sE/A Ratio0.8 MV A [id number] Pulmonary Valve PV Peak Pgiwparr420.0cm/s Pulmonary Vein S1 Roltdvrg21.9cm/sD2 Shtnfeuj03.4cm/s PVa [id number] LEFT VENTRICLE The left ventricle is normal size. There is normal left ventricular wall thickness. The left ventricu lar systolic function is normal. The ejection fraction is 60-65%. There is normal LV segmental wall m otion. Transmitral Doppler flow pattern is Grade I-abnormal relaxation pattern. There is no ventricul ar septal defect visualized. RIGHT VENTRICLE The right ventricle is normal size. The right ventricular systolic function is normal. ATRIA The left atrium size is normal. The right atrium size is normal. The interatrial septum is intact wit h no evidence for an atrial septal defect or patent foramen ovale as noted on 2-D or Doppler imaging. AORTIC VALVE The aortic valve is normal in structure and function. Doppler and Color Flow revealed no significant aortic regurgitation. There is no significant aortic valvular stenosis. MITRAL VALVE The mitral valve is normal in structure and function. There is no mitral valve stenosis. Doppler and Color Flow revealed no mitral valve regurgitation noted. TRICUSPID VALVE The tricuspid valve is normal in structure and function. Doppler and Color Flow revealed no tricuspid valve regurgitation noted. Unable to assess PA pressure. There is no tricuspid valve stenosis. PULMONIC VALVE The pulmonic valve is not well visualized. There is no pulmonic valvular stenosis. GREAT VESSELS The aortic root is normal in size. The ascending aorta is normal in size. The IVC is normal in size a nd collapses >50% with inspiration. PERICARDIAL EFFUSION There is no pleural effusion. There is no evidence of significant pericardial effusion. Critical Notification Critical Value: No <Conclusion> The left ventricular systolic function is normal. The ejection fraction is 60-65%. There is normal LV segmental wall motion. Transmitral Doppler flow pattern is Grade I-abnormal relaxation pattern. There is no evidence of significant pericardial effusion. Signed by : Reddy Moore, Electronically Approved : 06/23/2019 15:20:03
--- NOTE | 2019-06-23 16:40 | PDOC ---
PULMONARY PROGRESS NOTES Vitals Vital Signs Date Time Temp Pulse Resp B/P (MAP) Pulse Ox O2 Delivery O2 Flow Rate FiO2 06/23/19 16:10 94 Nasal Cannula 1.0 06/23/19 15:00 97.3 81 20 119/70 (86) 97.3 Cardiovascular: S1, S2 Labs Laboratory Tests Test 06/23/19 00:30 06/23/19 04:10 06/23/19 05:53 06/23/19 09:05 White Blood Count 20.9 x10^3/uL (4.0-11.0) Red Blood Count 4.88 x10^6/uL (3.50-5.40) Hemoglobin 13.8 g/dL (12.0-15.5) Hematocrit 41.7 % (36.0-47.0) Mean Corpuscular Volume 86 fL (79-100) Mean Corpuscular Hemoglobin 28 pg (25-35) Mean Corpuscular Hemoglobin Concent 33 g/dL (31-37) Red Cell Distribution Width 14.3 % (11.5-14.5) Platelet Count 310 x10^3/uL (140-400) Neutrophils (%) (Auto) 91 % (31-73) Lymphocytes (%) (Auto) 5 % (24-48) Monocytes (%) (Auto) 3 % (0-9) Eosinophils (%) (Auto) 0 % (0-3) Basophils (%) (Auto) 0 % (0-3) Neutrophils # (Auto) 19.1 x10^3/uL (1.8-7.7) Lymphocytes # (Auto) 1.1 x10^3/uL (1.0-4.8) Monocytes # (Auto) 0.6 x10^3/uL (0.0-1.1) Eosinophils # (Auto) 0.0 x10^3/uL (0.0-0.7) Basophils # (Auto) 0.1 x10^3/uL (0.0-0.2) Segmented Neutrophils % 84 % (35-66) Band Neutrophils % 3 % (0-9) Lymphocytes % 8 % (24-48) Monocytes % 5 % (0-10) Toxic Granulation Slight Platelet Estimate Adequate (ADEQUATE) D-Dimer (Cristine) 0.47 ug/mlFEU (0.00-0.50) Sodium Level 141 mmol/L (136-145) Potassium Level 4.6 mmol/L (3.5-5.1) Chloride Level 102 mmol/L (98-107) Carbon Dioxide Level 29 mmol/L (21-32) Anion Gap 10 (6-14) Blood Urea Nitrogen 9 mg/dL (7-20) Creatinine 0.7 mg/dL (0.6-1.0) Estimated GFR (Cockcroft-Gault) 85.6 BUN/Creatinine Ratio 13 (6-20) Glucose Level 154 mg/dL (70-99) Lactic Acid Level 1.4 mmol/L (0.4-2.0) Calcium Level 9.1 mg/dL (8.5-10.1) Magnesium Level 1.7 mg/dL (1.8-2.4) Total Bilirubin 0.4 mg/dL (0.2-1.0) Aspartate Amino Transf (AST/SGOT) 19 U/L (15-37) Alanine Aminotransferase (ALT/SGPT) 18 U/L (14-59) Alkaline Phosphatase 139 U/L (46-116) Troponin I Quantitative < 0.017 ng/mL (0.000-0.055) < 0.017 ng/mL (0.000-0.055) < 0.017 ng/mL (0.000-0.055) IQ-Kun-U-Type Natriuretic Peptide 83 pg/mL (0-124) Total Protein 7.1 g/dL (6.4-8.2) Albumin 3.7 g/dL (3.4-5.0) Albumin/Globulin Ratio 1.1 (1.0-1.7) Urine Collection Type Unknown Urine Color Yellow Urine Clarity Clear Urine pH 8.5 Urine Specific [place] 1.020 Urine Protein 30 mg/dL (NEG-TRACE) Urine Glucose (UA) Negative mg/dL (NEG) Urine Ketones (Stick) Negative mg/dL (NEG) Urine Blood Negative (NEG) Urine Nitrite Negative (NEG) Urine Bilirubin Negative (NEG) Urine Urobilinogen Dipstick 1.0 mg/dL (0.2 mg/dL) Urine Leukocyte Esterase Negative (NEG) Urine RBC Occ /HPF (0-2) Urine WBC Occ /HPF (0-4) Urine Squamous Epithelial Cells Mod /LPF Urine Bacteria Few /HPF (0-FEW) Urine Mucus Slight /LPF Triglycerides Level 53 mg/dL (0-150) Cholesterol Level 227 mg/dL (0-200) LDL Cholesterol, Calculated 174 mg/dL (0-100) VLDL Cholesterol, Calculated 11 mg/dL (0-40) Non-HDL Cholesterol Calculated 185 mg/dL (0-129) HDL Cholesterol 42 mg/dL (40-60) Cholesterol/HDL Ratio 5.4 Laboratory Tests Test 06/23/19 00:30 06/23/19 04:10 06/23/19 05:53 06/23/19 09:05 White Blood Count 20.9 x10^3/uL (4.0-11.0) Red Blood Count 4.88 x10^6/uL (3.50-5.40) Hemoglobin 13.8 g/dL (12.0-15.5) Hematocrit 41.7 % (36.0-47.0) Mean Corpuscular Volume 86 fL (79-100) Mean Corpuscular Hemoglobin 28 pg (25-35) Mean Corpuscular Hemoglobin Concent 33 g/dL (31-37) Red Cell Distribution Width 14.3 % (11.5-14.5) Platelet Count 310 x10^3/uL (140-400) Neutrophils (%) (Auto) 91 % (31-73) Lymphocytes (%) (Auto) 5 % (24-48) Monocytes (%) (Auto) 3 % (0-9) Eosinophils (%) (Auto) 0 % (0-3) Basophils (%) (Auto) 0 % (0-3) Neutrophils # (Auto) 19.1 x10^3/uL (1.8-7.7) Lymphocytes # (Auto) 1.1 x10^3/uL (1.0-4.8) Monocytes # (Auto) 0.6 x10^3/uL (0.0-1.1) Eosinophils # (Auto) 0.0 x10^3/uL (0.0-0.7) Basophils # (Auto) 0.1 x10^3/uL (0.0-0.2) Segmented Neutrophils % 84 % (35-66) Band Neutrophils % 3 % (0-9) Lymphocytes % 8 % (24-48) Monocytes % 5 % (0-10) Toxic Granulation Slight Platelet Estimate Adequate (ADEQUATE) D-Dimer (Cristine) 0.47 ug/mlFEU (0.00-0.50) Sodium Level 141 mmol/L (136-145) Potassium Level 4.6 mmol/L (3.5-5.1) Chloride Level 102 mmol/L (98-107) Carbon Dioxide Level 29 mmol/L (21-32) Anion Gap 10 (6-14) Blood Urea Nitrogen 9 mg/dL (7-20) Creatinine 0.7 mg/dL (0.6-1.0) Estimated GFR (Cockcroft-Gault) 85.6 BUN/Creatinine Ratio 13 (6-20) Glucose Level 154 mg/dL (70-99) Lactic Acid Level 1.4 mmol/L (0.4-2.0) Calcium Level 9.1 mg/dL (8.5-10.1) Magnesium Level 1.7 mg/dL (1.8-2.4) Total Bilirubin 0.4 mg/dL (0.2-1.0) Aspartate Amino Transf (AST/SGOT) 19 U/L (15-37) Alanine Aminotransferase (ALT/SGPT) 18 U/L (14-59) Alkaline Phosphatase 139 U/L (46-116) Troponin I Quantitative < 0.017 ng/mL (0.000-0.055) < 0.017 ng/mL (0.000-0.055) < 0.017 ng/mL (0.000-0.055) KG-Hvk-D-Type Natriuretic Peptide 83 pg/mL (0-124) Total Protein 7.1 g/dL (6.4-8.2) Albumin 3.7 g/dL (3.4-5.0) Albumin/Globulin Ratio 1.1 (1.0-1.7) Urine Collection Type Unknown Urine Color Yellow Urine Clarity Clear Urine pH 8.5 Urine Specific [place] 1.020 Urine Protein 30 mg/dL (NEG-TRACE) Urine Glucose (UA) Negative mg/dL (NEG) Urine Ketones (Stick) Negative mg/dL (NEG) Urine Blood Negative (NEG) Urine Nitrite Negative (NEG) Urine Bilirubin Negative (NEG) Urine Urobilinogen Dipstick 1.0 mg/dL (0.2 mg/dL) Urine Leukocyte Esterase Negative (NEG) Urine RBC Occ /HPF (0-2) Urine WBC Occ /HPF (0-4) Urine Squamous Epithelial Cells Mod /LPF Urine Bacteria Few /HPF (0-FEW) Urine Mucus Slight /LPF Triglycerides Level 53 mg/dL (0-150) Cholesterol Level 227 mg/dL (0-200) LDL Cholesterol, Calculated 174 mg/dL (0-100) VLDL Cholesterol, Calculated 11 mg/dL (0-40) Non-HDL Cholesterol Calculated 185 mg/dL (0-129) HDL Cholesterol 42 mg/dL (40-60) Cholesterol/HDL Ratio 5.4 Medications Active Scripts Medications Dose Route/Sig Max Daily Dose Days Date Category Diclofenac Sodium 50 Mg Tablet.dr 1 Tab PO BID 01/11/17 Rx Medrol (Methylprednisolone) 4 Mg Tab.ds.pk 1 Pkg PO UD 01/11/17 Rx Impression . Full note dictated thanks aecopd pneumonia ADOLPH PATEL MD Jun 23, 2019 16:40
[2019-06-23 17:38] LABS: MYCOPLASMA PATIENT NEGATIVE (NEGATIVE)
[2019-06-23 19:20] VITALS: BP 117/63
[2019-06-23 23:21] VITALS: BP 134/59
--- NOTE | 2019-06-24 02:58 | CONS ---
DATE OF CONSULTATION: 06/23/2019 ATTENDING PHYSICIAN: Dr. Marie. REASON FOR CONSULTATION: The patient is seen in pulmonary consultation at the request of Dr. Marie for increasing shortness of air. HISTORY OF PRESENT ILLNESS: The patient is a 58-year-old that presented with increasing shortness of breath, persistent cough and chest pain. She has been sick now for about a week. She had cold-like symptoms. She is up-to-date on her flu vaccination. She does not wear oxygen at home. She does smoke. She has a cough productive of no green sputum with no recent acute exacerbation of COPD. She has never been told that she has COPD. I was asked to see her in consultation. She had a chest x-ray, which revealed some basilar interstitial prominence compatible with an atypical infection. PAST MEDICAL HISTORY: Tobacco dependent COPD, undiagnosed, unknown FEV1, osteoarthritis. PAST SURGICAL HISTORY: . FAMILY HISTORY: Mother with lung cancer and heart disease. SOCIAL HISTORY: She smokes up to 1/2 pack of cigarettes a day. Denies any alcohol intake. REVIEW OF SYSTEMS: As indicated above, otherwise 10-point systems were reviewed and negative. MEDICATIONS: Home medication list was reviewed. Current medication list was likewise reviewed. At home, she was started on Medrol Dosepak. She is currently not on any bronchodilators at home. PHYSICAL EXAMINATION: VITAL SIGNS: Stable. O2 saturation is greater than 92%. HEENT: Eyes: The sclerae were nonicteric. NECK: Jugular venous distention was not elevated. No lymphadenopathy. CHEST: Full expansion. LUNGS: Poor airway flow with expiratory wheeze. CARDIOVASCULAR: Regular rate and rhythm with S1, S2, no S3. ABDOMEN: Soft, nontender, nondistended. EXTREMITIES: No clubbing, cyanosis, or edema. IMPRESSION: 1. Progressive dyspnea, multifactorial secondary to acute exacerbation of chronic obstructive pulmonary disease. 2. Abnormal x-ray. 3. Suspect atypical infection such as mycoplasma. 4. Tobacco dependence. 5. Leukocytosis. PLAN: 1. We will continue current IV steroids and antibiotics. Check mycoplasma levels. 2. IV Solu-Medrol. 3. Nebulized treatments. 4. Oxygen supplementation. Suspect the patient will be discharged within 24-48 hours. We will obtain a 6-minute walk prior to discharge and outpatient pulmonary function testing. I did offer for the patient a nicotine replacement for her tobacco cessation and she is going to think about it. We also spoke about her obesity. She was instructed on the importance of avoiding processed foods and walking on a daily basis. ADOLPH PATEL MD DR: FADY/marissa JOB#: [id number] / [id number]
[2019-06-24 03:44] VITALS: BP 138/70
[2019-06-24] MEDS: methylPREDNISolone SOD SUCC PF 40 MG/ML VIAL. IV SCH (05:28)
[2019-06-24 07:00] VITALS: BP 135/74
[2019-06-24] MEDS ORDERED: ASPIRIN ENTERIC COATED 81 MG TABLET.DR. PO SCH (08:00)
[2019-06-24 08:13] LABS: BASO % 0 % (0-3); EOS % 0 % (0-3); HEMATOCRIT 39.7 % (36.0-47.0); HEMOGLOBIN 12.9 g/dL (12.0-15.5); LYMPH # 0.9 x10^3/uL (1.0-4.8); LYMPH % 5 % (24-48); MEAN CORPUSCULAR HEMOGLOBIN 28 pg (25-35); MEAN CORPUSCULAR HGB CONC 32 g/dL (31-37); MEAN CORPUSCULAR VOLUME 87 fL (79-100); MONO # 0.4 x10^3/uL (0.0-1.1); MONO % 2 % (0-9); NEUT # 18.5 x10^3/uL (1.8-7.7); NEUT % 93 % (31-73); PLATELET COUNT 273 x10^3/uL (140-400); RED BLOOD COUNT 4.57 x10^6/uL (3.50-5.40); RED CELL DISTRIBUTION WIDTH 14.5 % (11.5-14.5); WHITE BLOOD COUNT 19.9 x10^3/uL (4.0-11.0)
--- NOTE | 2019-06-24 08:29 | PDOC ---
PULMONARY PROGRESS NOTES Vitals Vital Signs Date Time Temp Pulse Resp B/P (MAP) Pulse Ox O2 Delivery O2 Flow Rate FiO2 06/24/19 07:00 98.0 54 20 135/74 (94) 95 Nasal Cannula 2.0 98.0 Cardiovascular: S1, S2 Labs Laboratory Tests Test 06/23/19 00:30 06/23/19 04:10 06/23/19 05:53 06/23/19 09:05 White Blood Count 20.9 x10^3/uL (4.0-11.0) Red Blood Count 4.88 x10^6/uL (3.50-5.40) Hemoglobin 13.8 g/dL (12.0-15.5) Hematocrit 41.7 % (36.0-47.0) Mean Corpuscular Volume 86 fL (79-100) Mean Corpuscular Hemoglobin 28 pg (25-35) Mean Corpuscular Hemoglobin Concent 33 g/dL (31-37) Red Cell Distribution Width 14.3 % (11.5-14.5) Platelet Count 310 x10^3/uL (140-400) Neutrophils (%) (Auto) 91 % (31-73) Lymphocytes (%) (Auto) 5 % (24-48) Monocytes (%) (Auto) 3 % (0-9) Eosinophils (%) (Auto) 0 % (0-3) Basophils (%) (Auto) 0 % (0-3) Neutrophils # (Auto) 19.1 x10^3/uL (1.8-7.7) Lymphocytes # (Auto) 1.1 x10^3/uL (1.0-4.8) Monocytes # (Auto) 0.6 x10^3/uL (0.0-1.1) Eosinophils # (Auto) 0.0 x10^3/uL (0.0-0.7) Basophils # (Auto) 0.1 x10^3/uL (0.0-0.2) Segmented Neutrophils % 84 % (35-66) Band Neutrophils % 3 % (0-9) Lymphocytes % 8 % (24-48) Monocytes % 5 % (0-10) Toxic Granulation Slight Platelet Estimate Adequate (ADEQUATE) D-Dimer (Cristine) 0.47 ug/mlFEU (0.00-0.50) Sodium Level 141 mmol/L (136-145) Potassium Level 4.6 mmol/L (3.5-5.1) Chloride Level 102 mmol/L (98-107) Carbon Dioxide Level 29 mmol/L (21-32) Anion Gap 10 (6-14) Blood Urea Nitrogen 9 mg/dL (7-20) Creatinine 0.7 mg/dL (0.6-1.0) Estimated GFR (Cockcroft-Gault) 85.6 BUN/Creatinine Ratio 13 (6-20) Glucose Level 154 mg/dL (70-99) Lactic Acid Level 1.4 mmol/L (0.4-2.0) Calcium Level 9.1 mg/dL (8.5-10.1) Magnesium Level 1.7 mg/dL (1.8-2.4) Total Bilirubin 0.4 mg/dL (0.2-1.0) Aspartate Amino Transf (AST/SGOT) 19 U/L (15-37) Alanine Aminotransferase (ALT/SGPT) 18 U/L (14-59) Alkaline Phosphatase 139 U/L (46-116) Troponin I Quantitative < 0.017 ng/mL (0.000-0.055) < 0.017 ng/mL (0.000-0.055) < 0.017 ng/mL (0.000-0.055) XY-Fmm-A-Type Natriuretic Peptide 83 pg/mL (0-124) Total Protein 7.1 g/dL (6.4-8.2) Albumin 3.7 g/dL (3.4-5.0) Albumin/Globulin Ratio 1.1 (1.0-1.7) Urine Collection Type Unknown Urine Color Yellow Urine Clarity Clear Urine pH 8.5 Urine Specific [place] 1.020 Urine Protein 30 mg/dL (NEG-TRACE) Urine Glucose (UA) Negative mg/dL (NEG) Urine Ketones (Stick) Negative mg/dL (NEG) Urine Blood Negative (NEG) Urine Nitrite Negative (NEG) Urine Bilirubin Negative (NEG) Urine Urobilinogen Dipstick 1.0 mg/dL (0.2 mg/dL) Urine Leukocyte Esterase Negative (NEG) Urine RBC Occ /HPF (0-2) Urine WBC Occ /HPF (0-4) Urine Squamous Epithelial Cells Mod /LPF Urine Bacteria Few /HPF (0-FEW) Urine Mucus Slight /LPF Triglycerides Level 53 mg/dL (0-150) Cholesterol Level 227 mg/dL (0-200) LDL Cholesterol, Calculated 174 mg/dL (0-100) VLDL Cholesterol, Calculated 11 mg/dL (0-40) Non-HDL Cholesterol Calculated 185 mg/dL (0-129) HDL Cholesterol 42 mg/dL (40-60) Cholesterol/HDL Ratio 5.4 Test 06/23/19 16:41 06/24/19 06:28 Mycoplasma Serology (LAB) Negative (NEGATIVE) White Blood Count 19.9 x10^3/uL (4.0-11.0) Red Blood Count 4.57 x10^6/uL (3.50-5.40) Hemoglobin 12.9 g/dL (12.0-15.5) Hematocrit 39.7 % (36.0-47.0) Mean Corpuscular Volume 87 fL (79-100) Mean Corpuscular Hemoglobin 28 pg (25-35) Mean Corpuscular Hemoglobin Concent 32 g/dL (31-37) Red Cell Distribution Width 14.5 % (11.5-14.5) Platelet Count 273 x10^3/uL (140-400) Neutrophils (%) (Auto) 93 % (31-73) Lymphocytes (%) (Auto) 5 % (24-48) Monocytes (%) (Auto) 2 % (0-9) Eosinophils (%) (Auto) 0 % (0-3) Basophils (%) (Auto) 0 % (0-3) Neutrophils # (Auto) 18.5 x10^3/uL (1.8-7.7) Lymphocytes # (Auto) 0.9 x10^3/uL (1.0-4.8) Monocytes # (Auto) 0.4 x10^3/uL (0.0-1.1) Eosinophils # (Auto) 0.0 x10^3/uL (0.0-0.7) Basophils # (Auto) 0.0 x10^3/uL (0.0-0.2) Laboratory Tests Test 06/23/19 09:05 06/23/19 16:41 06/24/19 06:28 Troponin I Quantitative < 0.017 ng/mL (0.000-0.055) Triglycerides Level 53 mg/dL (0-150) Cholesterol Level 227 mg/dL (0-200) LDL Cholesterol, Calculated 174 mg/dL (0-100) VLDL Cholesterol, Calculated 11 mg/dL (0-40) Non-HDL Cholesterol Calculated 185 mg/dL (0-129) HDL Cholesterol 42 mg/dL (40-60) Cholesterol/HDL Ratio 5.4 Mycoplasma Serology (LAB) Negative (NEGATIVE) White Blood Count 19.9 x10^3/uL (4.0-11.0) Red Blood Count 4.57 x10^6/uL (3.50-5.40) Hemoglobin 12.9 g/dL (12.0-15.5) Hematocrit 39.7 % (36.0-47.0) Mean Corpuscular Volume 87 fL (79-100) Mean Corpuscular Hemoglobin 28 pg (25-35) Mean Corpuscular Hemoglobin Concent 32 g/dL (31-37) Red Cell Distribution Width 14.5 % (11.5-14.5) Platelet Count 273 x10^3/uL (140-400) Neutrophils (%) (Auto) 93 % (31-73) Lymphocytes (%) (Auto) 5 % (24-48) Monocytes (%) (Auto) 2 % (0-9) Eosinophils (%) (Auto) 0 % (0-3) Basophils (%) (Auto) 0 % (0-3) Neutrophils # (Auto) 18.5 x10^3/uL (1.8-7.7) Lymphocytes # (Auto) 0.9 x10^3/uL (1.0-4.8) Monocytes # (Auto) 0.4 x10^3/uL (0.0-1.1) Eosinophils # (Auto) 0.0 x10^3/uL (0.0-0.7) Basophils # (Auto) 0.0 x10^3/uL (0.0-0.2) Medications Active Scripts Medications Dose Route/Sig Max Daily Dose Days Date Category Diclofenac Sodium 50 Mg Tablet.dr 1 Tab PO BID 01/11/17 Rx Medrol (Methylprednisolone) 4 Mg Tab.ds.pk 1 Pkg PO UD 01/11/17 Rx Impression . Full note dictated thanks aecopd pneumonia ADOLPH PATEL MD Jun 24, 2019 08:29
[2019-06-24] MEDS: IPRATRPIUM/ALBUTEROL 0.5/2.5MG 3 ML NEBU. NEB SCH ×2 (08:35→12:20)
[2019-06-24 09:00] LABS: ALBUMIN 3.2 g/dL (3.4-5.0); ALBUMIN/GLOBULIN RATIO 0.9 (1.0-1.7); CALCIUM 8.8 mg/dL (8.5-10.1); CREATININE 0.6 mg/dL (0.6-1.0); GFR 102.3; POTASSIUM 5.1 mmol/L (3.5-5.1); TOTAL BILIRUBIN 0.3 mg/dL (0.2-1.0); TOTAL PROTEIN 6.6 g/dL (6.4-8.2)
[2019-06-24] MEDS: DICLOFENAC SODIUM 25 MG TABLET.DR PO SCH (09:14)
[2019-06-24] MEDS: DOXYCYCLINE HYCLATE 100 MG TABLET PO SCH (09:15)
[2019-06-24 10:59] VITALS: BP 114/52
[2019-06-24] MEDS ORDERED: BENZ100C PO (11:30)
[2019-06-24] MEDS ORDERED: DOXY100T PO (11:30)
[2019-06-24] MEDS ORDERED: ALBU2.5V8 IH (11:30)
--- NOTE | 2019-06-24 11:34 | PDOC3 ---
Discharge Summary Visit Information Date of Admission: Jun 23, 2019 Date of Discharge: Jun 24, 2019 Admitting Diagnosis Comment: 1. Acute respi failure, SMoker, 1.5 lasts 2 days 2. Obesity 3. LIkely undiagnosed COPD 4. Chest pain Suspect MSK in origin 5. 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 MIld hypomagneseami - 1.7 - replace 7. SIRSno organ dysfcn Final Diagnosis Problems Medical Problems: (1) Hypomagnesemia Status: Acute Brief Hospital Course Allergies Allergies Coded Allergies Type Severity Reaction Last Updated Verified No Known Drug Allergies 09/20/14 No Vital Signs Vital Signs Date Time Temp Pulse Resp B/P (MAP) Pulse Ox O2 Delivery O2 Flow Rate FiO2 06/24/19 10:59 98.4 85 20 114/52 (72) 95 Nasal Cannula 2.0 98.4 Lab Results Laboratory Tests Test 06/23/19 00:30 06/23/19 04:10 06/23/19 05:53 06/23/19 09:05 White Blood Count 20.9 x10^3/uL (4.0-11.0) Red Blood Count 4.88 x10^6/uL (3.50-5.40) Hemoglobin 13.8 g/dL (12.0-15.5) Hematocrit 41.7 % (36.0-47.0) Mean Corpuscular Volume 86 fL (79-100) Mean Corpuscular Hemoglobin 28 pg (25-35) Mean Corpuscular Hemoglobin Concent 33 g/dL (31-37) Red Cell Distribution Width 14.3 % (11.5-14.5) Platelet Count 310 x10^3/uL (140-400) Neutrophils (%) (Auto) 91 % (31-73) Lymphocytes (%) (Auto) 5 % (24-48) Monocytes (%) (Auto) 3 % (0-9) Eosinophils (%) (Auto) 0 % (0-3) Basophils (%) (Auto) 0 % (0-3) Neutrophils # (Auto) 19.1 x10^3/uL (1.8-7.7) Lymphocytes # (Auto) 1.1 x10^3/uL (1.0-4.8) Monocytes # (Auto) 0.6 x10^3/uL (0.0-1.1) Eosinophils # (Auto) 0.0 x10^3/uL (0.0-0.7) Basophils # (Auto) 0.1 x10^3/uL (0.0-0.2) Segmented Neutrophils % 84 % (35-66) Band Neutrophils % 3 % (0-9) Lymphocytes % 8 % (24-48) Monocytes % 5 % (0-10) Toxic Granulation Slight Platelet Estimate Adequate (ADEQUATE) D-Dimer (Cristine) 0.47 ug/mlFEU (0.00-0.50) Sodium Level 141 mmol/L (136-145) Potassium Level 4.6 mmol/L (3.5-5.1) Chloride Level 102 mmol/L (98-107) Carbon Dioxide Level 29 mmol/L (21-32) Anion Gap 10 (6-14) Blood Urea Nitrogen 9 mg/dL (7-20) Creatinine 0.7 mg/dL (0.6-1.0) Estimated GFR (Cockcroft-Gault) 85.6 BUN/Creatinine Ratio 13 (6-20) Glucose Level 154 mg/dL (70-99) Lactic Acid Level 1.4 mmol/L (0.4-2.0) Calcium Level 9.1 mg/dL (8.5-10.1) Magnesium Level 1.7 mg/dL (1.8-2.4) Total Bilirubin 0.4 mg/dL (0.2-1.0) Aspartate Amino Transf (AST/SGOT) 19 U/L (15-37) Alanine Aminotransferase (ALT/SGPT) 18 U/L (14-59) Alkaline Phosphatase 139 U/L (46-116) Troponin I Quantitative < 0.017 ng/mL (0.000-0.055) < 0.017 ng/mL (0.000-0.055) < 0.017 ng/mL (0.000-0.055) JB-Jeq-S-Type Natriuretic Peptide 83 pg/mL (0-124) Total Protein 7.1 g/dL (6.4-8.2) Albumin 3.7 g/dL (3.4-5.0) Albumin/Globulin Ratio 1.1 (1.0-1.7) Urine Collection Type Unknown Urine Color Yellow Urine Clarity Clear Urine pH 8.5 Urine Specific [place] 1.020 Urine Protein 30 mg/dL (NEG-TRACE) Urine Glucose (UA) Negative mg/dL (NEG) Urine Ketones (Stick) Negative mg/dL (NEG) Urine Blood Negative (NEG) Urine Nitrite Negative (NEG) Urine Bilirubin Negative (NEG) Urine Urobilinogen Dipstick 1.0 mg/dL (0.2 mg/dL) Urine Leukocyte Esterase Negative (NEG) Urine RBC Occ /HPF (0-2) Urine WBC Occ /HPF (0-4) Urine Squamous Epithelial Cells Mod /LPF Urine Bacteria Few /HPF (0-FEW) Urine Mucus Slight /LPF Triglycerides Level 53 mg/dL (0-150) Cholesterol Level 227 mg/dL (0-200) LDL Cholesterol, Calculated 174 mg/dL (0-100) VLDL Cholesterol, Calculated 11 mg/dL (0-40) Non-HDL Cholesterol Calculated 185 mg/dL (0-129) HDL Cholesterol 42 mg/dL (40-60) Cholesterol/HDL Ratio 5.4 Test 06/23/19 16:41 06/24/19 06:28 Mycoplasma Serology (LAB) Negative (NEGATIVE) White Blood Count 19.9 x10^3/uL (4.0-11.0) Red Blood Count 4.57 x10^6/uL (3.50-5.40) Hemoglobin 12.9 g/dL (12.0-15.5) Hematocrit 39.7 % (36.0-47.0) Mean Corpuscular Volume 87 fL (79-100) Mean Corpuscular Hemoglobin 28 pg (25-35) Mean Corpuscular Hemoglobin Concent 32 g/dL (31-37) Red Cell Distribution Width 14.5 % (11.5-14.5) Platelet Count 273 x10^3/uL (140-400) Neutrophils (%) (Auto) 93 % (31-73) Lymphocytes (%) (Auto) 5 % (24-48) Monocytes (%) (Auto) 2 % (0-9) Eosinophils (%) (Auto) 0 % (0-3) Basophils (%) (Auto) 0 % (0-3) Neutrophils # (Auto) 18.5 x10^3/uL (1.8-7.7) Lymphocytes # (Auto) 0.9 x10^3/uL (1.0-4.8) Monocytes # (Auto) 0.4 x10^3/uL (0.0-1.1) Eosinophils # (Auto) 0.0 x10^3/uL (0.0-0.7) Basophils # (Auto) 0.0 x10^3/uL (0.0-0.2) Erythrocyte Sedimentation Rate 57 (0-25) Sodium Level 141 mmol/L (136-145) Potassium Level 5.1 mmol/L (3.5-5.1) Chloride Level 103 mmol/L (98-107) Carbon Dioxide Level 24 mmol/L (21-32) Anion Gap 14 (6-14) Blood Urea Nitrogen 16 mg/dL (7-20) Creatinine 0.6 mg/dL (0.6-1.0) Estimated GFR (Cockcroft-Gault) 102.3 BUN/Creatinine Ratio 27 (6-20) Glucose Level 120 mg/dL (70-99) Calcium Level 8.8 mg/dL (8.5-10.1) Total Bilirubin 0.3 mg/dL (0.2-1.0) Aspartate Amino Transf (AST/SGOT) 14 U/L (15-37) Alanine Aminotransferase (ALT/SGPT) 15 U/L (14-59) Alkaline Phosphatase 122 U/L (46-116) Total Protein 6.6 g/dL (6.4-8.2) Albumin 3.2 g/dL (3.4-5.0) Albumin/Globulin Ratio 0.9 (1.0-1.7) Laboratory Tests Test 06/23/19 16:41 06/24/19 06:28 Mycoplasma Serology (LAB) Negative (NEGATIVE) White Blood Count 19.9 x10^3/uL (4.0-11.0) Red Blood Count 4.57 x10^6/uL (3.50-5.40) Hemoglobin 12.9 g/dL (12.0-15.5) Hematocrit 39.7 % (36.0-47.0) Mean Corpuscular Volume 87 fL (79-100) Mean Corpuscular Hemoglobin 28 pg (25-35) Mean Corpuscular Hemoglobin Concent 32 g/dL (31-37) Red Cell Distribution Width 14.5 % (11.5-14.5) Platelet Count 273 x10^3/uL (140-400) Neutrophils (%) (Auto) 93 % (31-73) Lymphocytes (%) (Auto) 5 % (24-48) Monocytes (%) (Auto) 2 % (0-9) Eosinophils (%) (Auto) 0 % (0-3) Basophils (%) (Auto) 0 % (0-3) Neutrophils # (Auto) 18.5 x10^3/uL (1.8-7.7) Lymphocytes # (Auto) 0.9 x10^3/uL (1.0-4.8) Monocytes # (Auto) 0.4 x10^3/uL (0.0-1.1) Eosinophils # (Auto) 0.0 x10^3/uL (0.0-0.7) Basophils # (Auto) 0.0 x10^3/uL (0.0-0.2) Erythrocyte Sedimentation Rate 57 (0-25) Sodium Level 141 mmol/L (136-145) Potassium Level 5.1 mmol/L (3.5-5.1) Chloride Level 103 mmol/L (98-107) Carbon Dioxide Level 24 mmol/L (21-32) Anion Gap 14 (6-14) Blood Urea Nitrogen 16 mg/dL (7-20) Creatinine 0.6 mg/dL (0.6-1.0) Estimated GFR (Cockcroft-Gault) 102.3 BUN/Creatinine Ratio 27 (6-20) Glucose Level 120 mg/dL (70-99) Calcium Level 8.8 mg/dL (8.5-10.1) Total Bilirubin 0.3 mg/dL (0.2-1.0) Aspartate Amino Transf (AST/SGOT) 14 U/L (15-37) Alanine Aminotransferase (ALT/SGPT) 15 U/L (14-59) Alkaline Phosphatase 122 U/L (46-116) Total Protein 6.6 g/dL (6.4-8.2) Albumin 3.2 g/dL (3.4-5.0) Albumin/Globulin Ratio 0.9 (1.0-1.7) Brief Hospital Course Ms. 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 Sitting up right with minimal air exchange, diminshed on bases, SHe also complained of left chest pain radiated to back, then she mentions starting from the neck moved to the left arm so cards was consulted, NO personal hx CAD, but then has not been to doctors and has risk factors Seen in med tele floor. EKG reviewed. MAg slightly low 1.7 COURSE, After overnight stay, co managed with pulmo, felt better, REady to dc home independent, STeroid taper, doxy and nebs given WIll add pulmicort consults: puilmo Proc; CXR dc < 30 Discharge Information Condition at Discharge: Improved, Stable Disposition/Orders: D/C to Home Scheduled Benzonatate (Tessalon Perle) 100 Mg Capsule, 1 CAP PO TID for cough, #21 Prescribed by: DES CRYSTAL on 06/24/19 1130 Diclofenac Sodium (Diclofenac Sodium) 50 Mg Tablet.dr, 1 TAB PO BID, #20 Ref 0 Prescribed by: Dianne Velasquez APRN on 01/11/171719 Last Action: Converted on 06/23/19855 by DES CRYSTAL Doxycycline Hyclate (Doxycycline Hyclate) 100 Mg Tablet, 100 MG PO BID for CAP for 10 Days, #20 Prescribed by: DES CRYSTAL on 06/24/19 1130 Scheduled PRN Albuterol Sulfate (Proair Hfa Inhaler) 8.5 Gm Hfa.aer.ad, 2 PUFF IH PRN Q4-6HRS PRN for wheezing for 21 Days, #1 Ref 0 Prescribed by: DES CRYSTAL on 06/24/19 1130 Discontinued Medications Methylprednisolone (Medrol) 4 Mg Tab.ds.pk, 1 PKG PO UD, #1 Prescribed by: Dianne Velasquez APRN on 01/11/171719 Last Action: HELD on 06/23/19855 by DES RAZO MD Jun 24, 2019 11:34
[2019-06-24] MEDS ORDERED: BUDE180A IH (11:35)
--- NOTE | 2019-06-24 14:51 | NUR ---
Discharge instructions given to patient and . Education given over pnuemonia and medications. Patient verbalizes understanding.
[2019-06-24] MEDS ORDERED: methylPREDNISolone SOD SUCC PF 40 MG/ML VIAL. IV SCH (21:00)
[2019-06-24] MEDS ORDERED: LACTOBACILLUS RHAMNOSUS GG 1 CAPSULE. PO SCH (21:00)
== END 2019-06-24 14:54 | disposition home or self-care (01) ==
LOC: ER 00:18 → 6 SOUTH 02:23
PROVIDERS: ADMIT Family Medicine; ATTEND Family Medicine
DX: E83.42 Hypomagnesemia (principal); J18.9 Pneumonia, unspecified organism; M19.90 Unspecified osteoarthritis, unspecified site; Z98.891 History of uterine scar from previous surgery
CPT/HCPCS: 36415; 71045; 80053; 80061; 81001; 83605; 83735; 83880; 84484; 85007; 85025; 85379; 85651; 86738; 87040; 93005; 93306; 94618; 94640; 94760; 96365; 96366; 96368; 96375; 96376; 99284; G0378; J1885; J1956; J2920; J3475; J7512; J7620; G0379